=== PATIENT | male | born 1960 | race Caucasian/White ===

== ENCOUNTER 2018-09-01 12:01 | Emergency (ER) | payer MEDICAID ==
[~2018-09-01] VITALS: Ht 177.8 cm; Wt 100.0 kg
[2018-09-01] MEDS ORDERED: HALOPERIDOL 5MG TABLET PO ONE (12:30)
[2018-09-01] MEDS ORDERED: LORAZEPAM 1MG TABLET PO ONE (13:00)
[2018-09-01] MEDS ORDERED: IBUPROFEN 600MG TABLET PO ONE (13:00)
[2018-09-01 13:05] LABS: BASOPHILS % 0.7 % (0.0-2.0); EOSINOPHILS % 0.4 % (0.0-5.0); HEMATOCRIT. 43.1 % (42.0-52.0); HEMOGLOBIN. 14.3 g/dL (14.0-18.0); LYMPHOCYTES % 26.3 % (20.0-50.0); MEAN CORPUSCULAR HEMOGLOBIN 29.5 pg (28.0-32.0); MEAN CORPUSCULAR VOLUME 88.8 fL (80.0-94.0); MEAN PLATELET VOLUME 7.2 fl (7.4-10.4); MONOCYTES % 8.5 % (2.0-8.0); NEUTROPHILS % 64.1 % (40.0-76.0); PLATELET 379 x1000/uL (130-400); RED BLOOD CELL COUNT 4.85 mill/uL (4.7-6.1); RED CELL DISTRIBUTION WIDTH 15.5 % (11.6-14.6)
[2018-09-01 13:11] LABS: CHLORIDE 103 mEq/L (98-107)
[2018-09-01 13:15] LABS: ETHANOL BLOOD < 10 mg/dL
[2018-09-01 14:41] LABS: *AMPHETAMINES SCREEN URINE PRESUMTIVE POSITIVE (NEGATIVE); *BARBITURATES SCREEN URINE NEGATIVE (NEGATIVE); *BENZODIAZEPINES SCREEN URINE NEGATIVE (NEGATIVE); *COCAINE SCREEN URINE NEGATIVE (NEGATIVE); METHADONE URINE SCREEN NEGATIVE (NEGATIVE)
[2018-09-01 14:42] LABS: CANNABINOID URINE SCREEN PRESUMTIVE POSITIVE (NEGATIVE); OPIATES URINE SCREEN NEGATIVE (NEGATIVE); PHENCYCLIDINE URINE SCREEN NEGATIVE (NEGATIVE)
[2018-09-01] MEDS ORDERED: LACTATED RINGERS 1,000 ML IV STA (15:33)
[2018-09-02] MEDS ORDERED: DIATR MEGLU/DIATRIZOATE SOLN 120ML ONE (08:03)
[2018-09-02 08:15] VITALS: BP 134/72
== END 2018-09-02 09:32 | disposition home or self-care (01) ==
LOC: EDBD → ER 12:01
DX: F22 Delusional disorders (principal); R45.851 Suicidal ideations; F31.9 Bipolar disorder, unspecified; I10 Essential (primary) hypertension; Z91.14 Patient's other noncompliance with medication regimen
CPT/HCPCS: 36415; 80048; 80305; 80320; 83605; 85025; 99284; J1630; J7120; Q9963; Z7610; G0480

== ENCOUNTER 2018-09-03 21:45 | Emergency (ER) | payer MEDICAID ==
[~2018-09-03] VITALS: Ht 172.7 cm; Wt 118.0 kg
[2018-09-04 02:16] VITALS: BP 166/89
== END 2018-09-04 02:50 | disposition left against medical advice (07) ==
LOC: EDBD → ER 21:45
DX: Z53.21 Procedure and treatment not carried out due to patient leaving prior to being seen by health care provider (principal)

== ENCOUNTER 2018-09-04 03:09 | Emergency (ER) | payer MEDICAID ==
[~2018-09-04] VITALS: Ht 170.2 cm; Wt 104.0 kg
[2018-09-04] MEDS ORDERED: SODIUM CHLORIDE 0.9% 1,000 ML IV ONE (04:32)
[2018-09-04 05:06] LABS: CHLORIDE 108 mEq/L (98-107)
[2018-09-04 05:10] LABS: ETHANOL BLOOD 30 mg/dL
[2018-09-04 05:11] LABS: BASOPHILS % 0.8 % (0.0-2.0); EOSINOPHILS % 1.3 % (0.0-5.0); HEMATOCRIT. 37.5 % (42.0-52.0); HEMOGLOBIN. 13.1 g/dL (14.0-18.0); MEAN CORPUSCULAR VOLUME 88.7 fL (80.0-94.0); MEAN PLATELET VOLUME 7.4 fl (7.4-10.4); MONOCYTES % 7.3 % (2.0-8.0); NEUTROPHILS % 59.6 % (40.0-76.0); PLATELET 325 x1000/uL (130-400); RED BLOOD CELL COUNT 4.23 mill/uL (4.7-6.1); RED CELL DISTRIBUTION WIDTH 15.5 % (11.6-14.6)
[2018-09-04 05:26] LABS: CLARITY URINE CLEAR (CLEAR); COLOR URINE YELLOW (YELLOW); KETONES URINE TRACE (NEGATIVE); LEUKOCYTE ESTERASE URINE NEGATIVE (NEGATIVE); NITRITE URINE NEGATIVE (NEGATIVE); OCCULT BLOOD URINE NEGATIVE (NEGATIVE); PH URINE 5.5 (4.5-8.0); PROTEIN URINE NEGATIVE (NEGATIVE); UROBILINOGEN URINE 0.2 E.U./dL (0.2-1.0)
[2018-09-04 05:28] LABS: PARTIAL THROMBOPLASTIN TIME 26.8 sec (23.4-31.0); PROTHROMBIN TIME 10.7 sec (9.6-11.0)
[2018-09-04 05:57] LABS: *AMPHETAMINES SCREEN URINE PRESUMTIVE POSITIVE (NEGATIVE); *BARBITURATES SCREEN URINE NEGATIVE (NEGATIVE); *BENZODIAZEPINES SCREEN URINE NEGATIVE (NEGATIVE)
[2018-09-04 05:58] LABS: *COCAINE SCREEN URINE NEGATIVE (NEGATIVE); CANNABINOID URINE SCREEN PRESUMTIVE POSITIVE (NEGATIVE); METHADONE URINE SCREEN NEGATIVE (NEGATIVE); OPIATES URINE SCREEN NEGATIVE (NEGATIVE); PHENCYCLIDINE URINE SCREEN NEGATIVE (NEGATIVE)
[2018-09-04] MEDS ORDERED: LORAZEPAM 2MG/ML CPJ IV ONE (09:00)
[2018-09-04 13:58] VITALS: BP 148/86
== END 2018-09-04 18:47 | disposition home or self-care (01) ==
LOC: EDBD 03:09 → ER 03:09
DX: S09.90XA Unspecified injury of head, initial encounter (principal); R42 Dizziness and giddiness; R45.851 Suicidal ideations; F20.9 Schizophrenia, unspecified; F12.10 Cannabis abuse, uncomplicated; F17.200 Nicotine dependence, unspecified, uncomplicated; F31.9 Bipolar disorder, unspecified; W49.09XA Other specified item causing external constriction, initial encounter; Y93.89 Activity, other specified; Y92.89 Other specified places as the place of occurrence of the external cause; Y99.8 Other external cause status
CPT/HCPCS: 36415; 70450; 71045; 80053; 80305; 80320; 81003; 83880; 84484; 85025; 85610; 85730; 93005; 96361; 96374; 99284; J2060; J7030; Z7610; G0480

== ENCOUNTER 2019-02-20 03:59 | Emergency (ER) | payer MEDICAID ==
[~2019-02-20] VITALS: Ht 172.7 cm; Wt 92.0 kg
[2019-02-20 05:21] LABS: CLARITY URINE CLEAR (CLEAR); COLOR URINE YELLOW (YELLOW); KETONES URINE NEGATIVE (NEGATIVE); LEUKOCYTE ESTERASE URINE NEGATIVE (NEGATIVE); NITRITE URINE NEGATIVE (NEGATIVE); OCCULT BLOOD URINE NEGATIVE (NEGATIVE); PH URINE 5.5 (4.5-8.0); PROTEIN URINE NEGATIVE (NEGATIVE); SPECIFIC GRAVITY URINE 1.004 (1.005-1.030); UROBILINOGEN URINE 0.2 E.U./dL (0.2-1.0)
[2019-02-20 05:27] LABS: BASOPHILS % 0.2 % (0.0-2.0); CHLORIDE 99 mEq/L (98-107); EOSINOPHILS % 0.2 % (0.0-5.0); HEMATOCRIT. 43.4 % (42.0-52.0); HEMOGLOBIN. 14.9 g/dL (14.0-18.0); LYMPHOCYTES % 14.2 % (20.0-50.0); MEAN CORPUSCULAR HEMOGLOBIN 29.8 pg (28.0-32.0); MEAN CORPUSCULAR VOLUME 86.9 fL (80.0-94.0); MEAN PLATELET VOLUME 7.2 fl (7.4-10.4); MONOCYTES % 7.4 % (2.0-8.0); PLATELET 300 x1000/uL (130-400); RED CELL DISTRIBUTION WIDTH 14.1 % (11.6-14.6)
[2019-02-20 05:31] LABS: ETHANOL BLOOD < 10 mg/dL
[2019-02-20 05:41] LABS: *AMPHETAMINES SCREEN URINE PRESUMTIVE POSITIVE (NEGATIVE); *BARBITURATES SCREEN URINE NEGATIVE (NEGATIVE); *BENZODIAZEPINES SCREEN URINE NEGATIVE (NEGATIVE); *COCAINE SCREEN URINE NEGATIVE (NEGATIVE); METHADONE URINE SCREEN NEGATIVE (NEGATIVE); OPIATES URINE SCREEN NEGATIVE (NEGATIVE)
[2019-02-20 05:42] LABS: CANNABINOID URINE SCREEN NEGATIVE (NEGATIVE); PHENCYCLIDINE URINE SCREEN NEGATIVE (NEGATIVE)
[2019-02-20] MEDS ORDERED: SODIUM CHLORIDE 0.9% 1,000 ML IV ONE (06:03)
[2019-02-20] MEDS ORDERED: HYDROCHLOROTHIAZIDE 25MG TABLET PO ONE (06:15)
[2019-02-20] MEDS ORDERED: CLONIDINE 0.1MG TABLET PO ONE (08:00)
[2019-02-20] MEDS ORDERED: LORAZEPAM 2MG/ML CPJ IV ONE (14:00)
[2019-02-21] MEDS ORDERED: BUPROPION HCL 75MG TABLET PO ONE (08:15)
[2019-02-21 08:49] VITALS: BP 132/78
== END 2019-02-21 08:50 | disposition home or self-care (01) ==
LOC: ER 04:12
DX: F31.9 Bipolar disorder, unspecified (principal); F15.10 Other stimulant abuse, uncomplicated; F29 Unspecified psychosis not due to a substance or known physiological condition; F20.9 Schizophrenia, unspecified; I10 Essential (primary) hypertension; Z59.0 Homelessness
CPT/HCPCS: 36415; 80053; 80305; 80320; 81003; 83605; 83690; 85025; 99284; J2060; J7030; G0480

== ENCOUNTER 2019-02-23 01:56 | Emergency (ER) | payer MEDICAID ==
[~2019-02-23] VITALS: Ht 175.3 cm; Wt 109.0 kg
[2019-02-23] MEDS ORDERED: OLANZAPINE 10 MG/VIAL IM ONE (03:15)
[2019-02-23 03:44] LABS: CHLORIDE 106 mEq/L (98-107)
[2019-02-23 03:45] LABS: BASOPHILS % 0.5 % (0.0-2.0); EOSINOPHILS % 0.4 % (0.0-5.0); HEMATOCRIT. 40.5 % (42.0-52.0); HEMOGLOBIN. 13.7 g/dL (14.0-18.0); LYMPHOCYTES % 19.3 % (20.0-50.0); MEAN CORPUSCULAR HEMOGLOBIN 29.2 pg (28.0-32.0); MEAN CORPUSCULAR VOLUME 86.2 fL (80.0-94.0); MEAN PLATELET VOLUME 7.4 fl (7.4-10.4); MONOCYTES % 11.3 % (2.0-8.0); NEUTROPHILS % 68.5 % (40.0-76.0); PLATELET 308 x1000/uL (130-400); RED BLOOD CELL COUNT 4.69 mill/uL (4.7-6.1); RED CELL DISTRIBUTION WIDTH 13.7 % (11.6-14.6)
[2019-02-23 03:50] LABS: ETHANOL BLOOD 52 mg/dL
[2019-02-23 05:04] LABS: *AMPHETAMINES SCREEN URINE PRESUMTIVE POSITIVE (NEGATIVE); *BARBITURATES SCREEN URINE NEGATIVE (NEGATIVE); *BENZODIAZEPINES SCREEN URINE NEGATIVE (NEGATIVE); *COCAINE SCREEN URINE PRESUMTIVE POSITIVE (NEGATIVE)
[2019-02-23 05:05] LABS: CANNABINOID URINE SCREEN PRESUMTIVE POSITIVE (NEGATIVE); METHADONE URINE SCREEN NEGATIVE (NEGATIVE); OPIATES URINE SCREEN NEGATIVE (NEGATIVE); PHENCYCLIDINE URINE SCREEN NEGATIVE (NEGATIVE)
[2019-02-23] MEDS ORDERED: BUPROPION HCL 100MG TABLET PO ONE (11:45)
[2019-02-23 15:10] VITALS: BP 167/71
== END 2019-02-23 15:24 | disposition home or self-care (01) ==
LOC: ER 02:11
DX: R45.851 Suicidal ideations (principal); R00.2 Palpitations; F31.9 Bipolar disorder, unspecified; F20.9 Schizophrenia, unspecified; I10 Essential (primary) hypertension; F17.200 Nicotine dependence, unspecified, uncomplicated
CPT/HCPCS: 36415; 80053; 80305; 80307; 80320; 80329; 85025; 93005; 96372; 99284; J3490; Z7610; G0480

== ENCOUNTER 2022-08-31 08:41 | Emergency (ER) | payer MEDICAID, OTHER ==
[~2022-08-31] VITALS: Ht 170.2 cm; Wt 68.0 kg
[2022-08-31 09:22] LABS: BASOPHILS % 0.1 % (0.0-2.0); EOSINOPHILS % 0.1 % (0.0-5.0); HEMATOCRIT. 41.4 % (42.0-52.0); HEMOGLOBIN. 14.3 g/dL (14.0-18.0); LYMPHOCYTES % 13.3 % (20.0-50.0); MEAN CORPUSCULAR HEMOGLOBIN 29.6 pg (28.0-32.0); MEAN CORPUSCULAR VOLUME 85.4 fL (80.0-94.0); MEAN PLATELET VOLUME 6.8 fl (7.4-10.4); NEUTROPHILS % 78.5 % (40.0-76.0); PLATELET 293 x1000/uL (130-400); RED BLOOD CELL COUNT 4.85 mill/uL (4.7-6.1); RED CELL DISTRIBUTION WIDTH 12.6 % (11.6-14.6)
[2022-08-31 09:32] LABS: CHLORIDE 104 mEq/L (98-107)
[2022-08-31 09:39] LABS: ETHANOL BLOOD < 10 mg/dL
[2022-08-31] MEDS ORDERED: OLANZAPINE 5MG TABLET ODT PO SCH (11:00)
[2022-08-31 11:41] LABS: CLARITY URINE CLEAR (CLEAR); COLOR URINE YELLOW (YELLOW)
[2022-08-31 11:42] LABS: KETONES URINE TRACE (NEGATIVE); PROTEIN URINE 1+ (NEGATIVE); SPECIFIC GRAVITY URINE 1.013 (1.005-1.030)
[2022-08-31 11:43] LABS: LEUKOCYTE ESTERASE URINE NEGATIVE (NEGATIVE); NITRITE URINE NEGATIVE (NEGATIVE); OCCULT BLOOD URINE NEGATIVE (NEGATIVE); UROBILINOGEN URINE 0.2 E.U./dL (0.2-1.0)
[2022-08-31 12:01] LABS: *AMPHETAMINES SCREEN URINE PRESUMTIVE POSITIVE (NEGATIVE); *BARBITURATES SCREEN URINE NEGATIVE (NEGATIVE); *BENZODIAZEPINES SCREEN URINE NEGATIVE (NEGATIVE); *COCAINE SCREEN URINE NEGATIVE (NEGATIVE); CANNABINOID URINE SCREEN NEGATIVE (NEGATIVE); METHADONE URINE SCREEN NEGATIVE (NEGATIVE); OPIATES URINE SCREEN NEGATIVE (NEGATIVE); PHENCYCLIDINE URINE SCREEN NEGATIVE (NEGATIVE)
[2022-08-31] MEDS ORDERED: POTASSIUM CHLORIDE 20MEQ TABLET SR PO ONE (13:45)
[2022-08-31] MEDS ORDERED: LORAZEPAM 1MG TABLET PO ONE (15:30)
[2022-08-31 16:30] VITALS: BP 99/66
== END 2022-08-31 17:30 ==
LOC: ER 08:43
DX: R45.851 Suicidal ideations (principal); F15.10 Other stimulant abuse, uncomplicated; F31.9 Bipolar disorder, unspecified; I10 Essential (primary) hypertension; F12.10 Cannabis abuse, uncomplicated; Z20.822 Contact with and (suspected) exposure to COVID-19
CPT/HCPCS: 36415; 80053; 80305; 80320; 81003; 85025; 87426; 99284; C9803; G0480